=== PATIENT | male | born 1945 | race Caucasian/White ===

== ENCOUNTER 2020-08-04 14:39 | Emergency (ER) | payer MEDICARE, OTHER ==
[~2020-08-04] VITALS: Ht 177 cm; Wt 97.0 kg
--- NOTE | 2020-08-04 15:05 | ED GU-Male ---
General Chief Complaint: - Urinary Stated Complaint: HEMATURIA Nursing Triage Note: PT SENT FROM CLINIC FOR BLOOD IN URINE. DIAGNOSED WITH UTI OVER THERE BUT SINCE HE HAD KETONES AND GLUCOSE IN HIS URINE HE WANTED TO BE CHECKED OUT FURTHER. History of Present Illness Date Seen by Provider: Aug 04, 2020 Time Seen by Provider: 14:56 Initial Comments 75-year-old male history of coronary artery disease stent hypertension denies history of any urinary or prostate difficulties he is on Plavix had colon resection years ago he was very physically active with some strenuous things recently but no fall or trauma other than gross hematuria, he has no other symptoms he was urinating and noted gross blood went to the clinic where they found blood and leukocytes in his urine I guess he was felt to have a UTI but there were further concerns so he was sent to the ER for evaluation Allergies and Home Medications Allergies Coded Allergies: No Known Drug Allergies (Unverified , 08/04/20) Patient Home Medication List Home Medication List Reviewed: Yes Review of Systems Review of Systems Constitutional: no symptoms reported EENTM: no symptoms reported Respiratory: no symptoms reported Cardiovascular: no symptoms reported Gastrointestinal: No abdominal pain, No vomiting Genitourinary: no symptoms reported; denies dysuria, denies frequency, denies flank pain; hematuria Musculoskeletal: no symptoms reported Skin: no symptoms reported Psychiatric/Neurological: No Symptoms Reported Past Gjdorea-Xbbtfx-Tlccsl Hx Patient Social History Alcohol Use: Denies Use Recreational Drug Use: No Smoking Status: Never a Smoker Type Used: Smokeless Tobacco 2nd Hand Smoke Exposure: No Recent Foreign Travel: No Contact w/Someone Who Travel: No Recent Infectious Disease Expo: No Recent Hopitalizations: No Physical Abuse: No Sexual Abuse: No Mistreated: No Fear: No Seasonal Allergies Seasonal Allergies: No Past Medical History Surgeries: Yes (Colon resections, cardiac stents) Bowel Surgery, Coronary Stent Respiratory: No Cardiac: Yes High Cholesterol, Hypertension Neurological: No Genitourinary: No Gastrointestinal: Yes Gastroesophageal Reflux Musculoskeletal: Yes Gout Endocrine: No HEENT: No Cancer: No Psychosocial: No Blood Disorders: No Physical Exam Vital Signs Vital Signs - First Documented 08/04/20 14:50 Temp 36.3 Pulse 64 Resp 18 B/P (MAP) 112/71 (85) Pulse Ox 98 O2 Delivery Room Air Capillary Refill : Less Than 3 Seconds Height, Weight, BMI Height: '" Weight: lbs. oz. kg; 30.00 BMI Method: General Appearance: WD/WN, no apparent distress HEENT: PERRL/EOMI, normal ENT inspection Neck: supple Cardiovascular: regular rate, rhythm Respiratory: lungs clear, normal breath sounds Gastrointestinal: non tender, soft, other (nothing to suggest bladder diste nsion) Genital/Rectal: normal genital exam Back: normal inspection, no CVA tenderness Progress/Results/Core Measures Suspected Sepsis Recent Fever Within 48 Hours: No Infection Criteria Present: None New/Unexplained Altered Menta: No Sepsis Screen: No Definite Risk SIRS Temperature: Pulse: 64 Respiratory Rate: 18 Laboratory Tests 08/04/20 14:57: White Blood Count 7.3 Blood Pressure 112 /71 Mean: 85 Laboratory Tests 08/04/20 14:57: Creatinine 2.02H, Platelet Count 213, Total Bilirubin 0.5 Results/Orders Lab Results Laboratory Tests Test 08/04/20 14:55 08/04/20 14:57 Range/Units Urine Color YELLOW Urine Clarity CLEAR Urine pH 6.0 5-9 Urine Specific River 1.025 H 1.016-1.022 Urine Protein NEGATIVE NEGATIVE Urine Glucose (UA) NEGATIVE NEGATIVE Urine Ketones NEGATIVE NEGATIVE Urine Nitrite NEGATIVE NEGATIVE Urine Bilirubin NEGATIVE NEGATIVE Urine Urobilinogen 0.2 < = 1.0 MG/DL Urine Leukocyte Esterase NEGATIVE NEGATIVE Urine RBC (Auto) 3+ H NEGATIVE Urine RBC >100 H /HPF Urine WBC NONE /HPF Urine Crystals NONE /LPF Urine Bacteria NONE /HPF Urine Casts NONE /LPF Urine Mucus NEGATIVE /LPF Urine Culture Indicated NO White Blood Count 7.3 4.3-11.0 10^3/uL Red Blood Count 4.00 L 4.35-5.85 10^6/uL Hemoglobin 12.3 L 13.3-17.7 G/DL Hematocrit 36 L 40-54 % Mean Corpuscular Volume 90 80-99 FL Mean Corpuscular Hemoglobin 31 25-34 PG Mean Corpuscular Hemoglobin Concent 34 32-36 G/DL Red Cell Distribution Width 13.8 10.0-14.5 % Platelet Count 213 130-400 10^3/uL Mean Platelet Volume 8.8 7.4-10.4 FL Neutrophils (%) (Auto) 58 42-75 % Lymphocytes (%) (Auto) 27 12-44 % Monocytes (%) (Auto) 11 0-12 % Eosinophils (%) (Auto) 3 0-10 % Basophils (%) (Auto) 1 0-10 % Neutrophils # (Auto) 4.2 1.8-7.8 X 10^3 Lymphocytes # (Auto) 2.0 1.0-4.0 X 10^3 Monocytes # (Auto) 0.8 0.0-1.0 X 10^3 Eosinophils # (Auto) 0.2 0.0-0.3 10^3/uL Basophils # (Auto) 0.0 0.0-0.1 10^3/uL Sodium Level 138 135-145 MMOL/L Potassium Level 3.8 3.6-5.0 MMOL/L Chloride Level 105 98-107 MMOL/L Carbon Dioxide Level 24 21-32 MMOL/L Anion Gap 9 5-14 MMOL/L Blood Urea Nitrogen 32 H 7-18 MG/DL Creatinine 2.02 H 0.60-1.30 MG/DL Estimat Glomerular Filtration Rate 32 BUN/Creatinine Ratio 16 Glucose Level 115 H 70-105 MG/DL Calcium Level 9.0 8.5-10.1 MG/DL Corrected Calcium 9.0 8.5-10.1 MG/DL Total Bilirubin 0.5 0.1-1.0 MG/DL Aspartate Amino Transf (AST/SGOT) 28 5-34 U/L Alanine Aminotransferase (ALT/SGPT) 18 0-55 U/L Alkaline Phosphatase 152 H 40-136 U/L Total Protein 6.9 6.4-8.2 GM/DL Albumin 4.0 3.2-4.5 GM/DL My Orders Orders - VERN MADDEN MD Urinalysis (08/04/20 14:52) Cbc With Automated Diff (08/04/20 14:52) Comprehensive Metabolic Panel (08/04/20 14:52) Vital Signs/I&O 08/04/20 14:50 Temp 36.3 Pulse 64 Resp 18 B/P (MAP) 112/71 (85) Pulse Ox 98 O2 Delivery Room Air Capillary Refill : Less Than 3 Seconds Blood Pressure Mean: 85 Progress Note : Progress Note Hb 12.3 WBC 7,300 Urine tests positive for blood with greater than 100 red cells but is otherwise negative CMP - BUN 32 creat 2.0 no old values to compare when giving urine sample here pt said there is much less blood than before Departure Impression Primary Impression: Hematuria Qualified Codes: R31.0 - Gross hematuria Additional Impression: Renal insufficiency Disposition: 01 HOME, SELF-CARE Condition: Stable Departure-Patient Inst. Decision time for Depature: 15:56 Referrals: MARILOU RADFORD MD (PCP/Family) Primary Care Physician JOY DUMONT MD Patient Instructions: Blood in the Urine (Hematuria), Adult (DC) Add. Discharge Instructions: We recommend that you schedule a follow-up appointment with the urologist Dr. Dumont regarding the bleeding Your kidney function is down somewhat creatinine 2.0 Dr. radford should be made aware of this and that should be followed over time All discharge instructions reviewed with patient and/or family. Voiced understanding. VERN MADDEN MD Aug 04, 2020 15:05
[2020-08-04 15:08] LABS: BILIRUBIN,URINE NEGATIVE (NEGATIVE); CLARITY,URINE CLEAR; COLOR,URINE YELLOW; GLUCOSE, URINE (UA) NEGATIVE (NEGATIVE); KETONES,URINE NEGATIVE (NEGATIVE); LEUKOCYTE ESTERASE ,URINE NEGATIVE (NEGATIVE); NITRITE,URINE NEGATIVE (NEGATIVE); PROTEIN,URINE NEGATIVE (NEGATIVE); RBC,URINE >100 /HPF
[2020-08-04 15:10] LABS: BASOPHILS % (AUTO) 1 % (0-10); EOSINOPHILS % (AUTO) 3 % (0-10); HEMATOCRIT 36 % (40-54); HEMOGLOBIN 12.3 G/DL (13.3-17.7); LYMPHOCYTES % (AUTO) 27 % (12-44); MEAN CORPUSCULAR HEMOGLOBIN 31 PG (25-34); MEAN CORPUSCULAR HGB CONC 34 G/DL (32-36); MEAN CORPUSCULAR VOLUME 90 FL (80-99); MEAN PLATELET VOLUME 8.8 FL (7.4-10.4); MONOCYTES % (AUTO) 11 % (0-12); NEUTROPHILS % (AUTO) 58 % (42-75); PLATELET COUNT 213 10^3/uL (130-400); WHITE BLOOD COUNT 7.3 10^3/uL (4.3-11.0)
[2020-08-04 15:11] LABS: EOSINOPHILS # (AUTO) 0.2 10^3/uL (0.0-0.3); MONOCYTES # (AUTO) 0.8 X 10^3 (0.0-1.0); NEUTROPHILS # (AUTO) 4.2 X 10^3 (1.8-7.8)
[2020-08-04 15:47] LABS: CREATININE SERUM 2.02 MG/DL (0.60-1.30); POTASSIUM 3.8 MMOL/L (3.6-5.0)
[2020-08-04 15:48] LABS: BILIRUBIN,TOTAL 0.5 MG/DL (0.1-1.0); TOTAL PROTEIN 6.9 GM/DL (6.4-8.2)
[2020-08-04 16:00] VITALS: BP 110/62
== END 2020-08-04 16:00 | disposition home or self-care (01) ==
LOC: ER FS 14:41
DX: R31.9 Hematuria, unspecified (principal); N28.9 Disorder of kidney and ureter, unspecified; I10 Essential (primary) hypertension; Z95.5 Presence of coronary angioplasty implant and graft; Z79.02 Long term (current) use of antithrombotics/antiplatelets
CPT/HCPCS: 36415; 80053; 81000; 85025

== ENCOUNTER → 2020-12-06 | Outpatient (CLI) | payer MEDICARE ==
--- NOTE | 2020-12-06 10:48 | Diagnostic Imaging Report ---
PROCEDURE: CT head without contrast. TECHNIQUE: Multiple contiguous axial images were obtained through the brain without the use of intravenous contrast. Auto Exposure Controls were utilized during the CT exam to meet ALARA standards for radiation dose reduction. DATE: December 06, 2020. COMPARISON: None. INDICATION: 75-year-old male, head injury. Headache. FINDINGS: The ventricles and cerebral spinal fluid spaces are of normal size and configuration for the patient's age. There is no mass effect or midline shift. There is no acute intracranial hemorrhage. There is no abnormal extra-axial fluid collection. The right frontal sinus is hypoplastic. There is a partially imaged polypoid lesion in the left maxillary sinus most likely reflecting a mucous retention cyst. The mastoid air cells and middle ears are well-aerated bilaterally. IMPRESSION: 1. No identified acute intracranial abnormality. Dictated by: Dictated on workstation # [id number]
== END ==
LOC: RAD FS 09:42
PROVIDERS: ATTEND Family Medicine
DX: S09.90XA Unspecified injury of head, initial encounter (principal); X58.XXXA Exposure to other specified factors, initial encounter
CPT/HCPCS: 70450

== ENCOUNTER 2021-10-17 15:09 | Observation (INO) | payer MEDICARE ==
[~2021-10-17] VITALS: Ht 177 cm; Wt 96.0 kg
--- OUTSIDE RECORDS SUMMARY | 2021-10-17 15:14 | XMS REPORT | Clinical Summary ---
Author [facility] Address Unknown Phone Unavailable Care Team Providers Care Wood Shingle Roofer Name Role Phone Self, Ziyad TILLMAN PCP Source Comments Some departments are not documenting in the electronic medical record. If you d o not see the information that you expected, contact Release of Information in [facility] [employer] Information Management department at [phone] for further assistan ce in locating additional records.[facility] Allergies Comments Active Allergy Reactions Severity Noted Date suicidal Hydrocodone-Acetaminophen UNKNOWN Low 07/20 Medications End Date Status Medication Sig Dispensed Refills Start Date Active METOPROLOL SUCCINATE PO Take 50 mg by 0 mouth daily. Active amLODIPine-benazepriL Take 1 0 (LOTREL) 10-20 mg capsule capsule by mouth daily. Active allopurinoL (ZYLOPRIM) Take 300 mg 0 300 mg tablet by mouth daily. Take with food. Active pantoprazole DR Take 40 mg by 0 (PROTONIX) 40 mg tablet mouth daily. Active losartan-hydrochlorothiaz Take 1 tablet 0 leonila (HYZAAR) 50-12.5 mg by mouth tablet every morning. Active docosahexaenoic acid/epa Take 1,200 mg 0 (FISH OIL PO) by mouth daily. Active aspirin EC 81 mg tablet Take 81 mg by 0 mouth daily. Take with food. Active atorvastatin (LIPITOR) 40 Take 40 mg by 0 mg tablet mouth daily. Active phenazopyridine Take one 6 tablet 0 (PYRIDIUM) 200 mg tablet tablet by 0 mouth three times daily as needed for Pain. Take after meals for up to 2 days. Active finasteride (PROSCAR) 5 Take one 90 tablet 3 mg tablet tablet by 0 mouth daily. Active Problems Problem Noted Date Hematuria 08/09/2020 Surgical History Surgery Date Site/Laterality Comments ABDOMEN SURGERY HX HEART CATHETERIZATION CYSTOURETHROSCOPY 08/16/2020 Bladder/N/A CYSTOURETHRO SCOPY WITH CLOT EVACUATION performed by Jefry Whalen MD at [facility] OR Medical History Medical History Date Comments Coronary artery disease Hyperlipidemia Hypertension Gout Social History Date Tobacco Use Types Packs/Day Years Used Never Smoker Smokeless Tobacco: Chew Current User Comments Alcohol Use Standard Drinks/Week Not Currently 0 (1 standard drink = 0.6 o z pure alcohol) Alcohol Habits Answer Date Recorded How often do you have a drink containing alcohol? Never 08/16/2020 How many drinks containing alcohol do you have on No t asked a typical day when you are drinking? How often do you have six or more drinks on one Not asked occasion? Comment: Not asked Sex Assigned at Date Recorded Male 08/11/2020 8:45 AM CDT Last Filed Vital Signs Reading Time Taken Comments Vital Sign 115/69 08/16/2020 2:15 PM CDT Blood Pressure 60 08/16/2020 2:15 PM CDT Pulse 36.5 C (97.7 F) 08/16/2020 2:15 PM CDT Temperature - - Respiratory Rate 94% 08/16/2020 2:15 PM CDT Oxygen Saturation - - Inhaled Oxygen Concentration 93.6 kg (206 lb 6.4 oz) 08/16/2020 11:01 AM CDT Weight 177.8 cm (5' 10") 08/16/2020 11:01 AM CDT Height 29.62 08/16/2020 11:01 AM CDT Body Mass Index Plan of Treatment Health Maintenance Due Date Last Done Comments MEDICARE ANNUAL WELLNESS 1945 VISIT DTAP/TDAP VACCINES (1 - 1964 Tdap) HEPATITIS C SCREENING 1964 PHYSICAL (COMPREHENSIVE) 1964 EXAM COLORECTAL CANCER 1996 SCREENING SHINGLES RECOMBINANT 1996 VACCINE (1 of 2) PNEUMONIA (PPSV23) 2011 VACCINE (1 of 1 - PPSV23) INFLUENZA VACCINE 06/18/2021 Results Not on filefrom Last 3 Months Insurance Type Payer Benefit Subscriber ID Effective Phone Address Plan / Dates Group Medicare MEDICARE MEDICARE [id number] 2011-P [phone] [address] [place] [address] [facility] AARP [id number] 2019-P [id number] [place] [address] Guarantor Name Account Relation to Date of Phone Markie toscano Address Type Patient Son Estrada Personal/F Self 1945 [address] [facility] (Home) [place], [place] [address] Advance Directives 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 necessary based on Dx Care Teams Start Date End Date Wood Shingle Roofer Relationship Specialty 08/09/20 Ziyad Rosado MD PCP - General Family [address] [place] [address] [place] [address]
[2021-10-17] MEDS ORDERED: ASPIRIN 81 MG CHEW (CHILDREN'S ASA) PO ONE (15:30)
--- NOTE | 2021-10-17 15:34 | Diagnostic Imaging Report ---
INDICATION: Chest pain. FINDINGS: The lungs are clear. There is no failure, effusion, or pneumothorax. IMPRESSION: No acute appearing abnormality. Dictated by: Dictated on workstation # [id number]
[2021-10-17 15:36] LABS: HEMATOCRIT 39 % (40-54); HEMOGLOBIN 13.1 g/dL (13.3-17.7); MEAN CORPUSCULAR HEMOGLOBIN 30 pg (25-34); MEAN CORPUSCULAR HGB CONC 34 g/dL (32-36); MEAN CORPUSCULAR VOLUME 90 fL (80-99); MEAN PLATELET VOLUME 8.6 fL (9.0-12.2); PLATELET COUNT 205 10^3/uL (130-400); WHITE BLOOD COUNT 5.9 10^3/uL (4.3-11.0)
[2021-10-17 15:37] LABS: BASOPHILS % (AUTO) 0 % (0-10); EOSINOPHILS % (AUTO) 0 % (0-10); LYMPHOCYTES # (AUTO) 1.7 X 10^3 (1.0-4.0); LYMPHOCYTES % (AUTO) 29 % (12-44); MONOCYTES # (AUTO) 0.9 X 10^3 (0.0-1.0); MONOCYTES % (AUTO) 15 % (0-12); NEUTROPHILS # (AUTO) 3.3 X 10^3 (1.8-7.8); NEUTROPHILS % (AUTO) 56 % (42-75)
[2021-10-17 15:47] LABS: PROTHROMBIN TIME PATIENT 13.5 SEC (12.2-14.7)
[2021-10-17 15:49] LABS: ALBUMIN 3.8 GM/DL (3.2-4.5); BILIRUBIN,TOTAL 0.4 MG/DL (0.1-1.0); CALCIUM 9.1 MG/DL (8.5-10.1); CREATININE SERUM 2.26 MG/DL (0.60-1.30); MAGNESIUM 2.1 MG/DL (1.6-2.4); POTASSIUM 3.5 MMOL/L (3.6-5.0)
--- NOTE | 2021-10-17 16:05 | ED Chest Pain ---
General Chief Complaint: Chest Pain Stated Complaint: CP,SOB,WEAKNESS,RUNNING NOSE Nursing Triage Note: PT REPORTS HE WOKE UP WITH CHEST PAIN THIS AM THAT LASTED ABOUT AN HOUR AND HALF/ THIS AFTERNOON HE HAD CHEST PAIN WITH DIAPHORESIS, WEAKNESS, AND SOB FOR ABOUT 45 MINS. DENIES CHEST PAIN AT THIS TIME. Source: patient Exam Limitations: no limitations History of Present Illness Date Seen by Provider: Oct 17, 2021 Time Seen by Provider: 15:09 Initial Comments Here with report of 2 episodes of chest pain today. Initially when he woke up this morning he had chest pain for about an hour and a half. Then it went away. He later had chest pain about an hour ago that lasted for 45 minutes that was associated with diaphoresis, weakness and shortness of breath. These are central and pressure and moderate in intensity. Currently chest pain-free. Denies vomiting or diarrhea. Does have history of previous cardiac stents x2 out of [place]. Follow[facility] here. Reports taking medications as directed. He is currently on Plavix and a baby aspirin daily but does not take other blood thinners. No history of atrial fibrillation per the patient. 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 NTG SL NEIGHBORHOOD WORKER: No Associated Symptoms: No abdominal pain, No back pain; diaphoresis; No fever/chills, No nausea/vomiting; shortness of breath, weakness Allergies and Home Medications Allergies Coded Allergies: No Known Drug Allergies (Unverified , 08/04/20) Patient Home Medication List Home Medication List Reviewed: Yes Review of Systems Review of Systems Constitutional: see HPI, diaphoresis, weakness EENTM: No Symptoms Reported Respiratory: Denies Cough; Shortness of Air Cardiovascular: Chest Pain; Denies Edema Gastrointestinal: Denies Abdominal Pain, Denies Nausea, Denies Vomiting Genitourinary: No Symptoms Reported Musculoskeletal: no symptoms reported All Other Systems Reviewed Negative Unless Noted: Yes Past Bdaghuo-Zasngm-Rvclfa Hx Patient Social History Tobacco Use?: Yes Smoking Status: Current Everyday Smoker Use of E-Cig and/or Vaping dev: No Substance use?: No Alcohol Use?: No Immunizations Up To Date First/Initial COVID19 Vaccinat: [employer] 2020 Second COVID19 Vaccination Jovan: [employer] 2020 COVID19 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: [employer] Seasonal Allergies Seasonal Allergies: No Past Medical History Surgeries: Yes (Colon resections, cardiac stents) Bowel Surgery, Coronary Stent Respiratory: No Cardiac: Yes High Cholesterol, Hypertension Neurological: No Genitourinary: No Gastrointestinal: Yes Gastroesophageal Reflux Musculoskeletal: Yes Gout Endocrine: No HEENT: No Cancer: No Psychosocial: No Blood Disorders: No Family Medical History Reviewed Nursing Family Hx Physical Exam Vital Signs Vital Signs - First Documented 10/17/21 15:09 Temp 36.6 Pulse 84 Resp 18 B/P (MAP) 121/76 (91) Pulse Ox 96 O2 Delivery Room Air Capillary Refill : Less Than 3 Seconds Height, Weight, BMI Height: '" Weight: lbs. oz. kg; 30.00 BMI Method: General Appearance: No Apparent Distress, WD/WN HEENT: PERRL/EOMI, Pharynx Normal Neck: Non Tender, Supple Respiratory: Lungs Clear, Normal Breath Sounds Cardiovascular: Regular Rate, Rhythm, No Murmur Gastrointestinal: Non Tender, Soft Extremity: Normal Range of Motion, Non Tender Neurologic/Psychiatric: Alert, Oriented x3 Skin: Normal Color, Warm/Dry Progress/Results/Core Measures Results/Orders Lab Results Laboratory Tests Test 10/17/21 15:18 Range/Units White Blood Count 5.9 4.3-11.0 10^3/uL Red Blood Count 4.34 4.30-5.52 10^6/uL Hemoglobin 13.1 L 13.3-17.7 g/dL Hematocrit 39 L 40-54 % Mean Corpuscular Volume 90 80-99 fL Mean Corpuscular Hemoglobin 30 25-34 pg Mean Corpuscular Hemoglobin Concent 34 32-36 g/dL Red Cell Distribution Width 13.9 10.0-14.5 % Platelet Count 205 130-400 10^3/uL Mean Platelet Volume 8.6 L 9.0-12.2 fL Neutrophils (%) (Auto) 56 42-75 % Lymphocytes (%) (Auto) 29 12-44 % Monocytes (%) (Auto) 15 H 0-12 % Eosinophils (%) (Auto) 0 0-10 % Basophils (%) (Auto) 0 0-10 % Neutrophils # (Auto) 3.3 1.8-7.8 X 10^3 Lymphocytes # (Auto) 1.7 1.0-4.0 X 10^3 Monocytes # (Auto) 0.9 0.0-1.0 X 10^3 Eosinophils # (Auto) 0.0 0.0-0.3 10^3/uL Basophils # (Auto) 0.0 0.0-0.1 10^3/uL Prothrombin Time 13.5 12.2-14.7 SEC INR Comment 1.0 0.8-1.4 Activated Partial Thromboplast Time 31 24-35 SEC D-Dimer 0.44 0.00-0.49 UG/ML Sodium Level 139 135-145 MMOL/L Potassium Level 3.5 L 3.6-5.0 MMOL/L Chloride Level 103 98-107 MMOL/L Carbon Dioxide Level 23 21-32 MMOL/L Anion Gap 13 5-14 MMOL/L Blood Urea Nitrogen 24 H 7-18 MG/DL Creatinine 2.26 H 0.60-1.30 MG/DL Estimat Glomerular Filtration Rate 28 BUN/Creatinine Ratio 11 Glucose Level 167 H 70-105 MG/DL Calcium Level 9.1 8.5-10.1 MG/DL Corrected Calcium 9.3 8.5-10.1 MG/DL Magnesium Level 2.1 1.6-2.4 MG/DL Total Bilirubin 0.4 0.1-1.0 MG/DL Aspartate Amino Transf (AST/SGOT) 33 5-34 U/L Alanine Aminotransferase (ALT/SGPT) 28 0-55 U/L Alkaline Phosphatase 224 H 40-136 U/L Myoglobin 135.8 H 10.0-92.0 NG/ML Troponin I < 0.30 <0.30 NG/ML Pro-B-Type Natriuretic Peptide 2137.0 H <75.0 PG/ML Total Protein 7.0 6.4-8.2 GM/DL Albumin 3.8 3.2-4.5 GM/DL My Orders Orders - MARQUIS PEREA MD Cbc With Automated Diff (10/17/21 15:16) Magnesium (10/17/21 15:16) Chest 1 View Ap/Pa Only (10/17/21 15:16) Ekg Tracing (10/17/21 15:16) Comprehensive Metabolic Panel (10/17/21 15:16) Myoglobin Serum (10/17/21 15:16) Protime With Inr (10/17/21 15:16) Partial Thromboplastin Time (10/17/21 15:16) O2 (10/17/21 15:16) Monitor-Rhythm Ecg Trace Only (10/17/21 15:16) Lipid Panel (10/18/21 06:00) Aspirin Chewable Tablet (Baby Aspirin Ch (10/17/21 15:30) Ed Iv/Invasive Line Start (10/17/21 15:16) Troponin I Fs (10/17/21 15:16) Probnp Fs (10/17/21 15:16) Fibrin Degradation Products (10/17/21 15:24) Enoxaparin Injection (Lovenox Injection) (10/17/21 16:30) Medications Given in ED Current Medications Medications Dose Ordered Sig/Aubree Route Start Time Stop Time Status Last Admin Dose Admin Aspirin 324 mg ONCE ONCE PO 10/17/21 15:30 10/17/21 15:31 DC 10/17/21 15:20 324 MG Vital Signs/I&O 10/17/21 15:09 Temp 36.6 Pulse 84 Resp 18 B/P (MAP) 121/76 (91) Pulse Ox 96 O2 Delivery Room Air Blood Pressure Mean: 91 Progress Progress Note : Progress Note Seen and evaluated. Chest pain protocol initiated. IV, labs and EKG done. ASA 324 mg p.o. ordered. Chest pain-free currently so no nitro. Atrial fibrillation noted on monitor. Patient does not have history of this for him. Monitor patient. 1605: Troponin is negative but myoglobin is elevated as well as BNP markedly elevated. Given his history, further evaluation is indicated and would benefit from cardiology evaluation. 1622: I did discuss the case with Dr. Shukla. He agrees to see the patient in consult and is in agreement with observation admission. Recommends Lovenox 1 mg/kg in first dose ordered now. I did discuss the case with Dr. Guevara at 1630. She accepts patient for admission, observation status. All findings and concerns were discussed with patient and family who agree with the plan. I also agree with admission to [facility]. His primary labeler is at [facility]. Initial ECG Impression Date: Oct 17, 2021 Initial ECG Impression Time: 15:09 Initial ECG Rhythm: A Fib/Flutter Comment Atrial fibrillation with normal axis. No evidence of ST elevation MD. No previous available for comparison. Does have lateral lead ST depression in V4 to V6. T wave flattening in multiple leads. Interpreted by me. Diagnostic Imaging Diagonstic Imaging: Xray Plain Films/CT/US/NM/MRI: chest Comments NAME: SURY [facility]ORDON [facility] REC#: [id number] PT STATUS: REG ER : 1945 PHYSICIAN: MARQUIS PEREA MD ADMIT DATE: 10/17/21/ER FS Draft Date of Exam:10/17/21 CHEST 1 VIEW AP/PA ONLY INDICATION: Chest pain. FINDINGS: The lungs are clear. There is no failure, effusion, or pneumothorax. IMPRESSION: No acute appearing abnormality. Dictated on workstation # [id number] Dict: 10/17/21 1531 Trans: 10/17/21 1534 [id number] Interpreted by: ADITYA VINCENT Electronically signed by: Departure Communication (Admissions) Time/Spoke to Admitting Phy: 16:30 Time/Spoke to Consulting Phy: 16:22 Impression Primary Impression: Chest pain Qualified Codes: R07.9 - Chest pain, unspecified Additional Impression: Atrial fibrillation Qualified Codes: I48.20 - Chronic atrial fibrillation, unspecified Disposition: 30 STILL A PATIENT Condition: Stable Admissions Decision to Admit Reason: Admit from ER (General) Decision to Admit/Date: Oct 17, 2021 Time/Decision to Admit Time: 16:22 Departure-Patient Inst. Referrals: MARILOU RADFORD MD (PCP/Family) Primary Care Physician MARQUIS PEREA MD Oct 17, 2021 16:05
[2021-10-17] MEDS ORDERED: ENOXAPARIN 100 MG/1 ML (LOVENOX) SYR SC ONE (16:30)
[2021-10-17] MEDS ORDERED: ACETAMINOPHEN 325 MG TABLET PO PRN (19:15)
[2021-10-17] MEDS: ENOXAPARIN 100 MG/1 ML (LOVENOX) SYR SC SCH (19:49)
[2021-10-17 20:00] VITALS: BP 114/82
--- NOTE | 2021-10-17 20:19 | Short Stay Summary-Hospitalist ---
History of Present Illness HPI/Chief Complaint Chief complaint: Chest pain History present illness: This is a 76-year-old white male with known history of CAD previous stents placed managed by cardiology a [facility] who presented to [facility] with chest pain and diaphoresis after putting in a chain link fence. Patient is currently without chest pain and is at the bedside. Source: patient, family, RN/MD, old records Exam Limitations: no limitations Date Seen 10/17/21 Time Seen by a Provider: 19:00 Attending Physician Leeann Guevara DO PCP Self,Ziyad TILLMAN Referring Physician Date of Admission Oct 17, 2021 at 18:35 Home Medications & Allergies Home Medications Reviewed patient Home Medication Reconciliation performed by pharmacy medication reconciliations operator technician and/or nursing. Patients Allergies have been reviewed. Allergies Allergies Coded Allergies No Known Drug Allergies (Unverified08/04/20) Past Cxjjzkm-Szirol-Hypctw Hx Patient Social History Marrital Status: Employed/Student: retired Tobacco Use?: Yes Smoking Status: Current Everyday Smoker Smokeless type used: Chew Use of E-Cig and/or Vaping dev: No Substance use?: No Alcohol Use?: No Immunizations Up To Date First/Initial COVID19 Vaccinat: PFIZER 2020 Second COVID19 Vaccination Jovan: PFIZER 2020 Seasonal Allergies Seasonal Allergies: No Current Status Advance Directives: No Communicates: Verbally Primary Language: Belarusian Preferred Spoken Language: Belarusian Past Medical History Surgeries: Bowel Surgery, Coronary Stent Coronary Artery Disease, High Cholesterol, Hypertension Gastroesophageal Reflux Gout Blood Disorders: No Family Medical History Reviewed Nursing Family Hx Review of Systems Constitutional: see HPI EENTM: no symptoms reported Respiratory: no symptoms reported Cardiovascular: chest pain Gastrointestinal: no symptoms reported Genitourinary: no symptoms reported Musculoskeletal: no symptoms reported Skin: no symptoms reported Psychiatric/Neurological: No Symptoms Reported All Other Systems Reviewed Negative Unless Noted: Yes Physical Exam Physical Exam Vital Signs Vital Signs - First Documented 10/17/21 15:09 Temp 36.6 Pulse 84 Resp 18 B/P (MAP) 121/76 (91) Pulse Ox 96 O2 Delivery Room Air Capillary Refill : Less Than 3 Seconds Height, Weight, BMI Height: '" Weight: lbs. oz. kg; 30.00 BMI Method: General Appearance: No Apparent Distress, WD/WN, Chronically ill HEENT: PERRL/EOMI, Pharynx Normal Neck: Non Tender, Supple Respiratory: Lungs Clear, Normal Breath Sounds Cardiovascular: Regular Rate, Rhythm, No Murmur Gastrointestinal: Non Tender, Soft Extremity: Normal Range of Motion, Non Tender Neurologic/Psychiatric: Alert, Oriented x3 Skin: Normal Color, Warm/Dry Results Results/Procedures Labs Laboratory Tests 10/17/21 15:18 10/18/21 04:30 Patient resulted labs reviewed. Short Stay Diagnosis Discharge Diagnosis-Short Stay Admission Diagnosis Chest pain Final Discharge Diagnosis Chest pain, CAD previous stents Conclusion Plan Cardiology consult Clinical Quality Measures AMI/AHF: ASA po Prior to arrival: Yes LEEANN GUEVARA DO Oct 17, 2021 20:19
[2021-10-17] MEDS ORDERED: ONDANSETRON 4 MG/2 ML (SDV) Z0FRAN IVP PRN (20:45)
[2021-10-17] MEDS ORDERED: ALPRAZolam 0.25 MG (XANAX) TAB PO PRN (20:45)
[2021-10-17] MEDS ORDERED: diphenhydrAMINE 25 MG TAB (BENADRYL) PO PRN (20:45)
[2021-10-17] MEDS ORDERED: MELATONIN 3 MG TABLET PO PRN (20:45)
[2021-10-17] MEDS ORDERED: HYDROcodone/APAP 5 MG/325 MG (LORTAB) TAB PO PRN (20:45)
[2021-10-17] MEDS ORDERED: morphine INJ 10 MG/ML 1ML (SYR OR VIAL) IVP PRN (20:45)
[2021-10-17] MEDS ORDERED: LOPERAMIDE 2 MG (IMODIUM) TABLET PO PRN (20:45)
[2021-10-17] MEDS ORDERED: CALCIUM CARBONATE 500 MG (TUMS) TAB.CHEW PO PRN (20:45)
[2021-10-17] MEDS ORDERED: DOCUSATE SODIUM 100 MG (COLACE) CAP PO PRN (20:45)
[2021-10-17] MEDS: polyethylene glycoL POWDER 17 GM (MIRALAX) PACK PO SCH (21:46)
[2021-10-17] MEDS: SENNA W/DOCUSATE (SENOKOT S) TABLET PO SCH (21:46)
[2021-10-18] VITALS: BP 110/77
[2021-10-18 04:43] LABS: BASOPHILS % (AUTO) 0 % (0-10); EOSINOPHILS % (AUTO) 0 % (0-10); HEMATOCRIT 39 % (40-54); LYMPHOCYTES # (AUTO) 1.7 10^3/uL (1.0-4.0); LYMPHOCYTES % (AUTO) 23 % (12-44); MEAN CORPUSCULAR HEMOGLOBIN 29 pg (25-34); MEAN CORPUSCULAR HGB CONC 33 g/dL (32-36); MEAN CORPUSCULAR VOLUME 89 fL (80-99); MONOCYTES # (AUTO) 0.9 10^3/uL (0.0-1.0); MONOCYTES % (AUTO) 11 % (0-12); NEUTROPHILS # (AUTO) 5.1 10^3/uL (1.8-7.8); NEUTROPHILS % (AUTO) 65 % (42-75); PLATELET COUNT 194 10^3/uL (130-400); WHITE BLOOD COUNT 7.8 10^3/uL (4.3-11.0)
[2021-10-18 04:58] LABS: ALBUMIN 3.7 GM/DL (3.2-4.5); POTASSIUM 3.6 MMOL/L (3.6-5.0)
[2021-10-18 04:59] LABS: CALCIUM 8.7 MG/DL (8.5-10.1)
[2021-10-18 05:00] LABS: TOTAL PROTEIN 6.6 GM/DL (6.4-8.2)
[2021-10-18 05:02] LABS: BILIRUBIN,TOTAL 0.7 MG/DL (0.1-1.0)
[2021-10-18 05:04] LABS: CREATININE SERUM 1.74 MG/DL (0.60-1.30)
[2021-10-18] MEDS: ENOXAPARIN 100 MG/1 ML (LOVENOX) SYR SC SCH (06:16)
[2021-10-18 06:51] LABS: TRIGLYCERIDES 115 MG/DL (<150); VLDL CHOLESTEROL 23 MG/DL (5-40)
[2021-10-18 06:56] LABS: CHOLESTEROL 107 MG/DL (< 200)
[2021-10-18 06:57] LABS: HDL CHOLESTEROL 28 MG/DL (40-60)
[2021-10-18 08:00] VITALS: BP 123/93
[2021-10-18] MEDS: polyethylene glycoL POWDER 17 GM (MIRALAX) PACK PO SCH (08:21)
[2021-10-18] MEDS: SENNA W/DOCUSATE (SENOKOT S) TABLET PO SCH (08:21)
--- NOTE | 2021-10-18 08:58 | Consultation-Cardiology ---
HPI-Cardiology Cardiology Consultation Date of Consultation 10/18/21 Date of Admission Time Seen by Provider: 08:52 Indication: Chest pain, new onset afib HPI Patient is a 76 y/o male with history of CAD with stents x 2, follows with [facility] in [place]. Report last stent approx 1 year ago, HTN, HLP, extobaccoism. Presented to the ER with complaints of chest pain and dyspnea. Reports he was putting up chain link fence yesterday when he had acute onset of chest pain and diaphoresis, lasting approx 20minutes, reporting improvement upon arrival to the ER. Reports increased dyspnea and fatigue for the past couple of weeks. Denies any active chest pain. EKG showing afib/flutter. Currently afib with HR in the 110's-120's. 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 Smoking Status: Former Smoker Type Used: Smokeless Tobacco 2nd Hand Smoke Exposure: No Recent Hopitalizations: No Have you traveled recently?: No Alcohol Use?: No Past Medical History HTN, HLP, CAD, extobaccoism Family Medical History Significant Family History: No Pertinent Family Hx Family Medical Hx Noncontributory Review of Systems-General Review of Systems Constitutional: see HPI, malaise EENTM: no symptoms reported; No blurred vision, No double vision Respiratory: see HPI, dyspnea on exertion; No hemoptysis, No orthopnea Cardiovascular: see HPI, chest pain; No edema; Hx of Intervention, palpitations; No syncope; vascular heart diseas Gastrointestinal: no symptoms reported Genitourinary: no symptoms reported Musculoskeletal: no symptoms reported Skin: no symptoms reported Psychiatric/Neurological: No Symptoms Reported All Other Systems Reviewed Negative Unless Noted: Yes Reviewed Test Results Reviewed Test Results Lab Laboratory Tests 10/17/21 15:18: White Blood Count 5.9, Red Blood Count 4.34, Hemoglobin 13.1L, Hematocrit 39L, Mean Corpuscular Volume 90, Mean Corpuscular Hemoglobin 30, Mean Corpuscular Hemoglobin Concent 34, Red Cell Distribution Width 13.9, Platelet Count 205, Mean Platelet Volume 8.6L, Neutrophils (%) (Auto) 56, Lymphocytes (%) (Auto) 29, Monocytes (%) (Auto) 15H, Eosinophils (%) (Auto) 0, Basophils (%) (Auto) 0, Neutrophils # (Auto) 3.3, Lymphocytes # (Auto) 1.7, Monocytes # (Auto) 0.9, Eosinophils # (Auto) 0.0, Basophils # (Auto) 0.0, Prothrombin Time 13.5, INR Comment 1.0, Activated Partial Thromboplast Time 31, D-Dimer 0.44, Sodium Level 139, Potassium Level 3.5L, Chloride Level 103, Carbon Dioxide Level 23, Anion Gap 13, Blood Urea Nitrogen 24H, Creatinine 2.26H, Estimat Glomerular Filtration Rate 28, BUN/Creatinine Ratio 11, Glucose Level 167H, Calcium Level 9.1, Corrected Calcium 9.3, Magnesium Level 2.1, Total Bilirubin 0.4, Aspartate Amino Transf (AST/SGOT) 33, Alanine Aminotransferase (ALT/SGPT) 28, Alkaline Phosphatase 224H, Myoglobin 135.8H, Troponin I < 0.30, Pro-B-Type Natriuretic Peptide 2137.0H, Total Protein 7.0, Albumin 3.8 10/17/21 20:13: Troponin I < 0.028, B-Type Natriuretic Peptide 394.1H 10/18/21 04:30: White Blood Count 7.8, Red Blood Count 4.43, Hemoglobin 13.0L, Hematocrit 39L, Mean Corpuscular Volume 89, Mean Corpuscular Hemoglobin 29, Mean Corpuscular Hemoglobin Concent 33, Red Cell Distribution Width 13.8, Platelet Count 194, Mean Platelet Volume 9.0, Neutrophils (%) (Auto) 65, Lymphocytes (%) (Auto) 23, Monocytes (%) (Auto) 11, Eosinophils (%) (Auto) 0, Basophils (%) (Auto) 0, Neutrophils # (Auto) 5.1, Lymphocytes # (Auto) 1.7, Monocytes # (Auto) 0.9, Eosinophils # (Auto) 0.0, Basophils # (Auto) 0.0, Sodium Level 140, Potassium Level 3.6, Chloride Level 107, Carbon Dioxide Level 22, Anion Gap 11, Blood Urea Nitrogen 20H, Creatinine 1.74H, Estimat Glomerular Filtration Rate 38, BUN/Crea tinine Ratio 11, Glucose Level 97, Calcium Level 8.7, Corrected Calcium 8.9, Total Bilirubin 0.7, Aspartate Amino Transf (AST/SGOT) 28, Alanine Aminotransferase (ALT/SGPT) 25, Alkaline Phosphatase 190H, Total Protein 6.6, Albumin 3.7, Immature Granulocyte % (Auto) 0, Immature Granulocyte # (Auto) 0.0, Triglycerides Level 115, Cholesterol Level 107, LDL Cholesterol Direct 63, VLDL Cholesterol 23, HDL Cholesterol 28L ECG Impression ECG Initial ECG Rhythm: A Fib/Flutter Physical Exam Physical Exam Vital Signs Vital Signs - First Documented 10/17/21 15:09 Temp 36.6 Pulse 84 Resp 18 B/P (MAP) 121/76 (91) Pulse Ox 96 O2 Delivery Room Air Capillary Refill : Less Than 3 Seconds Height, Weight, BMI Height: '" Weight: lbs. oz. kg; 30.64 BMI Method: General Appearance: No Apparent Distress, WD/WN, Chronically ill HEENT: PERRL/EOMI, Pharynx Normal Neck: Non Tender, Supple Respiratory: Lungs Clear, Normal Breath Sounds Cardiovascular: No Murmur, Irregularly Irregular, Tachycardia Gastrointestinal: Non Tender, Soft Back: No CVA Tenderness Extremity: Normal Range of Motion, Non Tender Neurologic/Psychiatric: Alert, Oriented x3 Skin: Normal Color, Warm/Dry A/P-Cardiology Admission Diagnosis Chest pain Atrial fibrillation CAD Elevated BNP Assessment/Plan Chest pain, nonspecific etiology, reporting improvement at this time. EKG revealing afib/flutter, troponin negative. Chest pain likely secondary to his atrial fibrillation. Will consider evaluating stress test as an outpatient, cardiac enzymes are negative at this time. Atrial fibrillation/flutter, new onset, currently afib/flutter with HR 120's, started on treatment dose Lovenox. Evaluate 2D Echo. Will keep NPO and plan for DANNY/Cardioversion later today. I will start amiodarone [id number] score 4, yearly risk of stroke without oral anticoagulation is 4%. Will start on Eliquis 5 mg twice daily Elevated BNP, evaluate 2D Echo. CAD, reports hx of stenting x 2 with most recent stent done approx 1 year ago. Had been maintained on ASA and Plavix. Follows with [facility] at [place]. HTN, restart home blood pressure medications after reconciliation HLP, maintained on statin as outpatient. Evaluate lipid profile CRI, management per PCP. Tobaccoism, patient uses chewing tobacco. Thank you for allowing us to participate in the management of Mr. Estrada. This is Nancy Parrish PA-C, as a scribe for Dr. Shukla. Patient was seen and evaluated with Nancy, interviewed and examined the patient He was in atrial fibrillation, reporting some palpitation on and off in the past few weeks. No chest pain. Had some chest discomfort on the day of admission. EKG showed nondiagnostic changes, cardiac enzymes were negative I proceeded with DANNY and electrical cardioversion, was successful in terminating atrial fibrillation, I am starting him on amiodarone I am planning to discharging him and arrange for follow-up as an outpatient Patient will start on oral anticoagulation Clinical Quality Measures AMI/AHF: ASA po Prior to arrival: Yes NANCY CARDENAS Oct 18, 2021 08:58 CONSTANCE SHUKLA MD Oct 18, 2021 11:10
[2021-10-18] MEDS ORDERED: ASPIRIN 81 MG CHEW (CHILDREN'S ASA) PO SCH (09:00)
[2021-10-18] MEDS ORDERED: LIDOCAINE 2% VISCOUS 15 ML UDC ONE (10:19)
--- NOTE | 2021-10-18 10:20 | Progress Note - Hospitalist ---
Subjective HPI/CC On Admission Date Seen by Provider: Oct 18, 2021 Chief complaint: Chest pain History present illness: This is a 76-year-old white male with known history of CAD previous stents placed managed by cardiology a [facility] [place] who presented to [place] [facility] with chest pain and diaphoresis after putting in a chain link fence. Patient is currently without chest pain and is at the bedside. Objective Exam Vital Signs Vital Signs Date Time Temp Pulse Resp B/P (MAP) Pulse Ox O2 Delivery O2 Flow Rate FiO2 10/18/21 15:49 37.6 74 12 117/76 (90) 94 Room Air Capillary Refill : Less Than 3 Seconds Results/Procedures Lab Laboratory Tests 10/18/21 04:30 Patient resulted labs reviewed. Assessment/Plan Assessment and Plan Assess & Plan/Chief Complaint Cardiology consult Clinical Quality Measures AMI/AHF: ASA po Prior to arrival: Yes ELIEZER VALERIO DO Oct 18, 2021 10:20
[2021-10-18] MEDS ORDERED: proPOfol 200 MG/20 ML (DIPRIVAN) VIAL IV ONE (10:32)
[2021-10-18] MEDS ORDERED: AMIODARONE INJECTION 450 MG in D5W IV SOLUTION (EXCEL) 250 ML IV SCH (11:00)
[2021-10-18] MEDS ORDERED: AMIODARONE FOR BOLUS 150 MG in D5W 100 ML IVPB 100 ML IV NR (11:00)
--- NOTE | 2021-10-18 11:03 | Anesthesia-General Post-Op ---
MAC Patient Condition Mental Status/LOC: Same as Preop Cardiovascular: Satisfactory Nausea/Vomiting: Absent Respiratory: Satisfactory Pain: Controlled Complications: Absent Post Op Complications Complications None Follow Up Care/Instructions Patient Instructions None needed. Anesthesiology Discharge Order Discharge Order Patient is doing well, no complaints, stable vital signs, no apparent adverse anesthesia problems. No complications reported per nursing. HELGA ROD CRNA Oct 18, 2021 11:03
--- NOTE | 2021-10-18 11:07 | Conscious Sedation/ASA ---
Conscious Sedation Pre-Proced Time 09:00 ASA Score 3 For ASA 3 and 4: Consider anesthesia and medical clearance. Also, for patients with a history of failed moderate sedation consider anesthesia. Airway Lungs Heart ASA score ASA 1: a normal healthy patient ASA 2: a patient with a mild systemic disease (mid diabetes, controlled hypertension, obesity x ASA 3: a patient with a severe systemic disease that limits activity (angina, COPD, prior Myocardial infarction) ASA 4: a patient with an incapacitating disease that is a constant threat to life (CHF, renal failure) ASA 5: a moribund patient not expected to survive 24 hrs. (ruptured aneurysm) ASA 6: a declared brain- patient whose organs are being harvested. For emergent operations, add the letter E after the classification Mallampati Classification Grade 3 Sedation Plan Analgesia, Amnesia, Plan communicated to team members, Discussed options with patient/fam, Discussed risks with patient/fam The patient is an appropriate candidate to undergo the planned procedure, sedation, and anesthesia. The patient immediately re-assessed prior to indication. CONSTANCE OWUSU MD Oct 18, 2021 11:07
--- NOTE | 2021-10-18 11:11 | Cardioversion ---
Cardioversion PROCEDURE PHYSICIAN: Constance Shukla DATE OF PROCEDURE: 10/18/21 DIRECT EXTERNAL ELECTRICAL CARDIOVERSION: Indications: Atrial Fibrillation with rapid ventricular rate Preoperative diagnoses: Atrial Fibrillation with rapid ventricular rate Postoperative diagnosis: Sinus rhythm, Successful Electrical Cardioversion History: 76 years old gentleman admitted with chest pain, was noted to be in atrial fibrillation with rapid ventricular response. Anesthesia: By Anesthesia services Complications: None Specimen: None Contrast: 0 Flouroscopy: none Procedure Details: The patient was brought the cathodic protection technician after informed consent was taken, all the risks and complications were explained including the risk of stroke. Electrical cardioversion was carried out with anesthesia support with propofol. 200 joules of synchronized shock was delivered through external patches which promptly restored sinus rhythm. Conclusions: Successful electrical cardioversion in terminating atrial fibrillation CONSTANCE SHUKLA MD Oct 18, 2021 11:11
[2021-10-18 12:00] VITALS: BP 116/85
[2021-10-18] MEDS ORDERED: ALLO300T2 PO (14:26)
[2021-10-18] MEDS ORDERED: ATOR40TA70 PO (14:26)
[2021-10-18] MEDS ORDERED: CLOP75TA28 PO (14:26)
[2021-10-18] MEDS ORDERED: FINA5TAB6 PO (14:26)
[2021-10-18] MEDS ORDERED: AMLO-251 PO (14:26)
[2021-10-18] MEDS ORDERED: OMEG-160 PO (14:26)
[2021-10-18] MEDS ORDERED: PANT40TA52 PO (14:26)
[2021-10-18] MEDS ORDERED: METO50TA7 PO (14:26)
[2021-10-18] MEDS ORDERED: ASPI-1238 PO (14:26)
[2021-10-18 15:49] VITALS: BP 117/76
[2021-10-18] MEDS ORDERED: APIX5TAB PO (15:53)
--- NOTE | 2021-10-18 15:53 | Discharge Summary ---
Discharge Summary Hospital Course Hospital Course Date of Admission: Oct 17, 2021 at 18:35 Admission Diagnosis : Family Physician/Provider: Ziyad Rosado MD Date of Discharge: 10/18/21 Discharge Diagnosis: [ ] Hospital Course: [ ] Labs and Pending Lab Test: Laboratory Tests 10/17/21 20:13: Troponin I < 0.028, B-Type Natriuretic Peptide 394.1H 10/18/21 04:30: White Blood Count 7.8, Red Blood Count 4.43, Hemoglobin 13.0L, Hematocrit 39L, Mean Corpuscular Volume 89, Mean Corpuscular Hemoglobin 29, Mean Corpuscular Hemoglobin Concent 33, Red Cell Distribution Width 13.8, Platelet Count 194, Mean Platelet Volume 9.0, Immature Granulocyte % (Auto) 0, Neutrophils (%) (Auto) 65, Lymphocytes (%) (Auto) 23, Monocytes (%) (Auto) 11, Eosinophils (%) (Auto) 0, Basophils (%) (Auto) 0, Neutrophils # (Auto) 5.1, Lymphocytes # (Auto) 1.7, Monocytes # (Auto) 0.9, Eosinophils # (Auto) 0.0, Basophils # (Auto) 0.0, Immature Granulocyte # (Auto) 0.0, Sodium Level 140, Potassium Level 3.6, Chloride Level 107, Carbon Dioxide Level 22, Anion Gap 11, Blood Urea Nitrogen 20H, Creatinine 1.74H, Estimat Glomerular Filtration Rate 38, BUN/Creatinine Ratio 11, Glucose Level 97, Calcium Level 8.7, Corrected Calcium 8.9, Total Bilirubin 0.7, Aspartate Amino Transf (AST/SGOT) 28, Alanine Aminotransferase (ALT/SGPT) 25, Alkaline Phosphatase 190H, Total Protein 6.6, Albumin 3.7, Triglycerides Level 115, Cholesterol Level 107, LDL Cholesterol Direct 63, VLDL Cholesterol 23, HDL Cholesterol 28L Home Meds Active Reported Fish Oil 1,000 mg Softgel ([place]-3/Dha/Epa/Fish Oil) 1 Each Capsule 1 Each PO DAILY Aspirin EC (Aspirin) 81 Mg Tablet.dr 81 Mg PO DAILY Clopidogrel (Clopidogrel Bisulfate) 75 Mg Tablet 75 Mg PO 2000 Allopurinol 300 Mg Tablet 300 Mg PO DAILY Finasteride 5 Mg Tablet 5 Mg PO 2000 Atorvastatin Calcium 40 Mg Tablet 40 Mg PO DAILY Pantoprazole Sodium 40 Mg Tablet.dr 40 Mg PO DAILY Amlodipine Besylate 10 Mg Tablet 10 Mg PO DAILY Metoprolol Succinate 50 Mg Tab.er.24h 50 Mg PO DAILY Discharge Physical Examination Vital Signs Vital Signs Date Time Temp Pulse Resp B/P (MAP) Pulse Ox O2 Delivery O2 Flow Rate FiO2 10/18/21 15:49 37.6 74 12 117/76 (90) 94 Room Air Allergies: Coded Allergies: No Known Drug Allergies (Unverified , 08/04/20) Discharge Summary Date of Admission Oct 17, 2021 at 18:35 Date of Discharge Discharge Date: Oct 18, 2021 Admission Diagnosis Chest pain Discharge Diagnosis Cardiology consult Clinical Quality Measures AMI/AHF: ASA po Prior to arrival: Yes ELIEZER VALERIO DO Oct 18, 2021 15:53
[2021-10-18] MEDS ORDERED: AMIO200T65 PO (16:10)
--- NOTE | 2021-10-18 17:24 | Discharge Summary ---
Discharge Summary Hospital Course Was the Problem List Reviewed?: Yes Problems/Dx: (1) Chest pain Qualifiers: Qualified Codes: R07.9 - Chest pain, unspecified (2) Atrial fibrillation Status: Acute Qualifiers: Qualified Codes: I48.20 - Chronic atrial fibrillation, unspecified Hospital Course Date of Admission: Oct 17, 2021 at 18:35 Admission Diagnosis : Family Physician/Provider: Ziyad Rosado MD Date of Discharge: 10/18/21 Discharge Diagnosis: Chest pain, atrial fibrillation with rapid ventricular response status post DANNY with cardioversion Hospital Course: Pt doing okay New onset AFIB with RVR Has had palpitations in the past DANNY indicated and cardioversion if no thrombosis Creatinine 1.74 Otherwise feels okay Patient had a brief course after no evidence of ACS he was found to have A. fib with RVR status post DANNY with cardioversion patient was deemed stable for discharge Labs and Pending Lab Test: Laboratory Tests 10/17/21 20:13: Troponin I < 0.028, B-Type Natriuretic Peptide 394.1H 10/18/21 04:30: White Blood Count 7.8, Red Blood Count 4.43, Hemoglobin 13.0L, Hematocrit 39L, Mean Corpuscular Volume 89, Mean Corpuscular Hemoglobin 29, Mean Corpuscular Hemoglobin Concent 33, Red Cell Distribution Width 13.8, Platelet Count 194, Mean Platelet Volume 9.0, Immature Granulocyte % (Auto) 0, Neutrophils (%) (Auto) 65, Lymphocytes (%) (Auto) 23, Monocytes (%) (Auto) 11, Eosinophils (%) (Auto) 0, Basophils (%) (Auto) 0, Neutrophils # (Auto) 5.1, Lymphocytes # (Auto) 1.7, Monocytes # (Auto) 0.9, Eosinophils # (Auto) 0.0, Basophils # (Auto) 0.0, Immature Granulocyte # (Auto) 0.0, Sodium Level 140, Potassium Level 3.6, Chloride Level 107, Carbon Dioxide Level 22, Anion Gap 11, Blood Urea Nitrogen 20H, Creatinine 1.74H, Estimat Glomerular Filtration Rate 38, BUN/Creatinine Ratio 11, Glucose Level 97, Calcium Level 8.7, Corrected Calcium 8.9, Total Bilirubin 0.7, Aspartate Amino Transf (AST/SGOT) 28, Alanine Aminotransferase (ALT/SGPT) 25, Alkaline Phosphatase 190H, Total Protein 6.6, Albumin 3.7, Triglycerides Level 115, Cholesterol Level 107, LDL Cholesterol Direct 63, VLDL Cholesterol 23, HDL Cholesterol 28L Home Meds Active Amiodarone HCl 200 Mg Tablet 400 Mg PO BID 30 Days Take 400mg BID x 2 weeks, then 200mg BID x 2 weeks, then 200mg daily. Eliquis (Apixaban) 5 Mg Tablet 5 Mg PO BID Reported Fish Oil 1,000 mg Softgel ([place]-3/Dha/Epa/Fish Oil) 1 Each Capsule 1 Each PO DAILY Aspirin EC (Aspirin) 81 Mg Tablet.dr 81 Mg PO DAILY Allopurinol 300 Mg Tablet 300 Mg PO DAILY Finasteride 5 Mg Tablet 5 Mg PO 2000 Atorvastatin Calcium 40 Mg Tablet 40 Mg PO DAILY Pantoprazole Sodium 40 Mg Tablet.dr 40 Mg PO DAILY Amlodipine Besylate 10 Mg Tablet 10 Mg PO DAILY Metoprolol Succinate 50 Mg Tab.er.24h 50 Mg PO DAILY Assessment/Pt Instructions PCP in 1 week Discharge Planning: <30 minutes discharge planning Discharge Instructions Discharge Diet: No Restrictions Activity as Tolerated: Yes Discharge Physical Examination Vital Signs Vital Signs Date Time Temp Pulse Resp B/P (MAP) Pulse Ox O2 Delivery O2 Flow Rate FiO2 10/18/21 15:49 37.6 74 12 117/76 (90) 94 Room Air General Appearance: No Apparent Distress, WD/WN, Chronically ill Allergies: Coded Allergies: No Known Drug Allergies (Unverified , 08/04/20) Discharge Summary Date of Admission Oct 17, 2021 at 18:35 Date of Discharge Discharge Date: Oct 18, 2021 Admission Diagnosis Chest pain Discharge Diagnosis Cardiology consult Clinical Quality Measures AMI/AHF: ASA po Prior to arrival: Yes ELIEZER VALERIO DO Oct 18, 2021 17:24
[2021-10-18] MEDS ORDERED: AMIODARONE 200 MG (CORDARONE) TAB PO SCH (21:00)
[2021-10-18] MEDS ORDERED: APIXABAN 5 MG (ELIQUIS) TABLET PO SCH (21:00)
== END 2021-10-18 17:30 | disposition home or self-care (01) ==
LOC: EDUNIT# 15:10 → ER FS 15:11 → CSD 18:35
PROVIDERS: ADMIT Internal Medicine; ATTEND Internal Medicine
DX: R07.9 Chest pain, unspecified (principal); I48.91 Unspecified atrial fibrillation; I25.10 Atherosclerotic heart disease of native coronary artery without angina pectoris; E78.00 Pure hypercholesterolemia, unspecified; I10 Essential (primary) hypertension; K21.9 Gastro-esophageal reflux disease without esophagitis; E78.5 Hyperlipidemia, unspecified; Z87.891 Personal history of nicotine dependence
CPT/HCPCS: 36415; 71045; 80053 ×2; 80061; 83735; 83874; 83880 ×2; 84484 ×2; 85025 ×2; 85379; 85610; 85730; 93005; 93041; 93306; 93312; 93320; 93325; 96372; 99284; G0378

== ENCOUNTER → 2021-10-25 | Outpatient (CLI) | payer MEDICARE ==
[~2021-10-25] VITALS: Ht 177 cm; Wt 91.0 kg
[~2021-10-25] MED LIST: ALLO300T2 PO; AMIO200T65 PO; AMLO-251 PO; APIX5TAB PO; ASPI-1238 PO; ATOR40TA70 PO; CATHETER FLUSH 10 ML SYR IV PRN; CLOP75TA28 PO; FINA5TAB6 PO; METO50TA7 PO; OMEG-160 PO; PANT40TA52 PO; REGADENOSON 0.4 MG/5 ML SYR (LEXISCAN) IV ONE
[2021-10-25 13:41] VITALS: BP 150/79
--- NOTE | 2021-10-25 15:27 | Cardiology Stress Test Report ---
Stress Test Report Date of Procedure/Referring: Date of Procedure: Oct 25, 2021 Nancy Rose Admitting Physician Ziyad Rosado MD Indications: Chest pain Baseline Heart Rate: 52 Baseline Blood Pressure: Blood Pressure Systolic: 150 Blood Pressure Diastolic: 79 Baseline Vitals Vital Signs Date Time Temp Pulse Resp B/P (MAP) Pulse Ox O2 Delivery O2 Flow Rate FiO2 10/25/21 13:41 52 150/79 (102) Baseline EKG: Baseline EKG: NSR Summary After explaining the procedure to the patient, he signed a consent and then brought to the stress nuclear laboratory. Patient received 0.4 mg Lexiscan for stress test, ECG, heart rate and blood pressure were monitored continuously. Resting and stress dose of radio tracer were injected, imaging was acquired and reviewed in short axis, horizontal long axis and vertical long axis views. TID: 0.94 SSS: 1 SDS: 1 EF: 57 1. Patient tolerated Lexiscan well 2. No ischemia or infarction on SPECT images 3. Normal left ventricular size, EF 57% CONSTANCE OWUSU MD Oct 25, 2021 15:27
== END ==
LOC: CARD 12:45
PROVIDERS: ATTEND Physician Assistant
DX: R07.9 Chest pain, unspecified (principal)
CPT/HCPCS: 78452; 93017; A9502

== ENCOUNTER 2022-07-25 08:28 | Day surgery (SDC) | payer MEDICARE ==
[~2022-07-25] VITALS: Ht 177.8 cm; Wt 99.3 kg
[~2022-07-25 08:28] MED LIST changes: -CATHETER FLUSH 10 ML SYR IV PRN; -REGADENOSON 0.4 MG/5 ML SYR (LEXISCAN) IV ONE
[2022-07-25] MEDS ORDERED: LIDOCAINE 1% INJ 20 ML VIAL ONE (08:39)
[2022-07-25 08:44] VITALS: BP 136/88
[2022-07-25] MEDS: LIDOCAINE 1% INJ 20 ML VIAL INJ ONE (09:00)
--- NOTE | 2022-07-25 09:18 | Implantation of Loop Monitor ---
Implant of Loop Monitior IMPLANTATION OF LOOP MONITOR REPORT DATE OF PROCEDURE: 07/25/22 PREOP DIAGNOSIS: Paroxysmal atrial fibrillation POSTOP DIAGNOSIS: Paroxysmal atrial fibrillation PROCEDURE DETAILS: The patient is a 77 male with history of paroxysmal atrial fibrillation requiring long-term surveillance. Therefore implantable loop recorder was discussed and agreed with the patient. Informed consent was taken. All risks and complications were discussed at length. The patient was draped and prepped in the usual sterile fashion. Local anesthesia was lidocaine, which was given in the substernal area close to the 4th intercostal space. Loop monitor [employer] with serial number [id number] was implanted according to the protocol. Steri- Strips were placed at the end of the procedure. There were no complications and the patient tolerated the procedure well. ANESTHESIA: Local anesthesia with lidocaine. COMPLICATIONS: None CONTRAST/FLUOROSCOPY: None CONCLUSION: Successful implantation of loop monitor with no complication FINAL DIAGNOSIS: Paroxysmal atrial fibrillation Palpitation Hypertension Hyperlipidemia CONSTANCE OWUSU MD Jul 25, 2022 09:18
== END 2022-07-25 11:49 | disposition home or self-care (01) ==
LOC: CATH 08:28
PROVIDERS: ATTEND Internal Medicine Cardiovascular Disease
DX: I48.0 Paroxysmal atrial fibrillation (principal); Z79.01 Long term (current) use of anticoagulants; I25.10 Atherosclerotic heart disease of native coronary artery without angina pectoris; I10 Essential (primary) hypertension; E78.5 Hyperlipidemia, unspecified; F17.220 Nicotine dependence, chewing tobacco, uncomplicated; Z79.899 Other long term (current) drug therapy; Z79.82 Long term (current) use of aspirin
CPT/HCPCS: 33285

== ENCOUNTER 2023-01-23 05:05 | Emergency (ER) | payer MEDICARE ==
[~2023-01-23] VITALS: Ht 177.8 cm; Wt 96.2 kg
[2023-01-23] MEDS ORDERED: NS IV 500 ML 500 ML IV STA (05:25)
--- NOTE | 2023-01-23 05:33 | ED Cardiac General ---
History of Present Illness General Stated Complaint: IRR HEART RATE Source: patient, spouse Exam Limitations: no limitations History of Present Illness Date Seen by Provider: Jan 23, 2023 Time Seen by Provider: 05:10 Initial Comments 77 yo male presenting with complaint of feeling like his heart was racing. He has a history of paroxysmal atrial fibrillation and has an implanted loop recorder by Dr. Shukla Jul 2022. He felt about an hour prior to arrival he felt his heart was going fast. He usually takes his medicine in the morning around 7 or 8 am. He did not have chest pains with his symptoms. He feels like he is a little light headed with his heart racing. He denies missing doses of medicines. He reports he is due to see Dr. Shukla at the end of this month as a follow up from placing the loop recorder. He denies nausea, vomiting, chest pain, abd ominal pain. Timing/Duration: 1-3 hours Severity: mild Activities at Onset: rest Prior CP/Workup: angina, cardiac cath, echocardiography, stress test, other (Loop recorder, Stent placement x 2 ) Modifying Factors: worse with movement (heart goes up in rate with activity) NTG SL TRUST AND ESTATES PARALEGAL: No ASA po TRUST AND ESTATES PARALEGAL: No Associated Systoms: No Chest Pain; Cough (intermittent dry cough); No Diaphoresis, No Fever/Chills, No Headaches, No Loss of Appetite, No Malaise, No Nausea/Vomiting, No Rash, No Seizure; Shortness of Air (mild); No Syncope, No Weakness Allergies and Home Medications Allergies Coded Allergies: No Known Drug Allergies (Unverified , 08/04/20) Patient Home Medication List Home Medication List Reviewed: Yes Allopurinol (Allopurinol) 300 Mg Tablet, 300 MG PO DAILY, (Reported) Entered as Reported by: TITUS GOLDBERG on 10/18/211425 Last Action: Last Taken Edited Amiodarone HCl (Amiodarone HCl) 200 Mg Tablet, 400 MG PO BID Prescribed by: RICHARD PEÑALOZA on 10/18/21 1610 Last Action: Last Taken Edited Amlodipine Besylate (Amlodipine Besylate) 10 Mg Tablet, 10 MG PO DAILY, (Reported) Entered as Reported by: TITUS GOLDBERG on 10/18/211425 Last Action: Last Taken Edited Apixaban (Eliquis) 5 Mg Tablet, 5 MG PO BID Prescribed by: ELIEZER VALERIO on 10/18/21 551 Last Action: Last Taken Edited Aspirin (Aspirin EC) 81 Mg Tablet., 81 MG PO DAILY, (Reported) Entered as Reported by: TITUS GOLDBERG on 10/18/211425 Last Action: Last Taken Edited Atorvastatin Calcium (Atorvastatin Calcium) 40 Mg Tablet, 40 MG PO DAILY, (Reported) Entered as Reported by: TITUS GOLDBERG on 10/18/211425 Last Action: Last Taken Edited Finasteride (Finasteride) 5 Mg Tablet, 5 MG PO 1999, (Reported) Entered as Reported by: TITUS GOLDBERG on 10/18/211425 Last Action: Last Taken Edited Metoprolol Succinate (Metoprolol Succinate) 50 Mg Tab.er.24h, 50 MG PO DAILY, (Reported) Entered as Reported by: TITUS GOLDBERG on 10/18/211425 Last Action: Last Taken Edited [place]-3/Dha/Epa/Fish Oil (Fish Oil 1,000 mg Softgel) 1 Each Capsule, 1 EACH PO DAILY, (Reported) Entered as Reported by: TITUS GOLDBERG on 10/18/211425 Last Action: Last Taken Edited Pantoprazole Sodium (Pantoprazole Sodium) 40 Mg Tablet., 40 MG PO DAILY, (Reported) Entered as Reported by: TITUS GOLDBERG on 10/18/211425 Last Action: Last Taken Edited Review of Systems Review of Systems Constitutional: No chills, No fever EENTM: No Symptoms Reported Respiratory: See HPI Cardiovascular: See HPI Gastrointestinal: See HPI Genitourinary: No Symptoms Reported Musculoskeletal: no symptoms reported Skin: no symptoms reported Psychiatric/Neurological: No Symptoms Reported Endocrine: No Symptoms Reported Past Flwjkdu-Ibncxc-Sywiaf Hx Patient Social History Tobacco Use?: No Smokeless Tobacco Frequency: Former User Use of E-Cig and/or Vaping dev: No Substance use?: No Immunizations Up To Date First/Initial COVID19 Vaccinat: Red-rabbit 2020 Second COVID19 Vaccination Jovan: Red-rabbit 2020 Seasonal Allergies Seasonal Allergies: No Past Medical History Surgeries: Yes (Colon resections, cardiac stents) Bowel Surgery, Coronary Stent Respiratory: No Cardiac: Yes Coronary Artery Disease, High Cholesterol, Hypertension Neurological: No Genitourinary: No Gastrointestinal: Yes Gastroesophageal Reflux Musculoskeletal: Yes Gout Endocrine: No HEENT: No Cancer: No Psychosocial: No Blood Disorders: No Family Medical History No Pertinent Family Hx Physical Exam Vital Signs Vital Signs - First Documented 01/23/23 05:14 Temp 35.7 Pulse 96 Resp 15 B/P (MAP) 115/67 (83) Pulse Ox 98 O2 Delivery Room Air Capillary Refill : Height, Weight, BMI Height: '" Weight: lbs. oz. kg; 31.41 BMI Method: General Appearance: No Apparent Distress, WD/WN Neck: Normal Inspection, Supple Respiratory: Chest Non Tender, Lungs Clear, Normal Breath Sounds, No Accessory Muscle Use, No Respiratory Distress Cardiovascular: No Murmur, Normal Peripheral Pulses, Irregularly Irregular Gastrointestinal: Normal Bowel Sounds, No Pulsatile Mass, Non Tender, Soft Rectal: Deferred Extremity: Normal Capillary Refill, Normal Inspection, No Pedal Edema Neurologic/Psychiatric: Alert, Oriented x3, spice fumigator II-XII Norm as Tested Skin: Normal Color, Warm/Dry Progress/Results/Core Measures Results/Orders Lab Results Laboratory Tests Test 01/23/23 05:24 Range/Units White Blood Count 6.2 4.3-11.0 10^3/uL Red Blood Count 4.74 4.30-5.52 10^6/uL Hemoglobin 12.0 L 13.3-17.7 g/dL Hematocrit 37 L 40-54 % Mean Corpuscular Volume 78 L 80-99 fL Mean Corpuscular Hemoglobin 25 25-34 pg Mean Corpuscular Hemoglobin Concent 32 32-36 g/dL Red Cell Distribution Width 15.2 H 10.0-14.5 % Platelet Count 196 130-400 10^3/uL Mean Platelet Volume 8.5 L 9.0-12.2 fL Immature Granulocyte % (Auto) 0 % Neutrophils (%) (Auto) 53 42-75 % Lymphocytes (%) (Auto) 32 12-44 % Monocytes (%) (Auto) 14 H 0-12 % Eosinophils (%) (Auto) 1 0-10 % Basophils (%) (Auto) 0 0-10 % Neutrophils # (Auto) 3.3 1.8-7.8 10^3/uL Lymphocytes # (Auto) 2.0 1.0-4.0 10^3/uL Monocytes # (Auto) 0.9 0.0-1.0 10^3/uL Eosinophils # (Auto) 0.0 0.0-0.3 10^3/uL Basophils # (Auto) 0.0 0.0-0.1 10^3/uL Immature Granulocyte # (Auto) 0.0 0.0-0.1 10^3/uL Prothrombin Time 15.9 H 12.2-14.7 SEC INR Comment 1.2 0.8-1.4 Activated Partial Thromboplast Time 42 H 24-35 SEC Sodium Level 135 135-145 MMOL/L Potassium Level 3.4 L 3.6-5.0 MMOL/L Chloride Level 102 98-107 MMOL/L Carbon Dioxide Level 20 L 21-32 MMOL/L Anion Gap 13 5-14 MMOL/L Blood Urea Nitrogen 29 H 7-18 MG/DL Creatinine 2.07 H 0.60-1.30 MG/DL Estimat Glomerular Filtration Rate 33 BUN/Creatinine Ratio 14 Glucose Level 101 70-105 MG/DL Calcium Level 8.7 8.5-10.1 MG/DL Corrected Calcium 8.9 8.5-10.1 MG/DL Magnesium Level 2.3 1.6-2.4 MG/DL Total Bilirubin 0.4 0.1-1.0 MG/DL Aspartate Amino Transf (AST/SGOT) 23 5-34 U/L Alanine Aminotransferase (ALT/SGPT) 10 0-55 U/L Alkaline Phosphatase 164 H 40-136 U/L Troponin I < 0.30 <0.30 NG/ML Pro-B-Type Natriuretic Peptide 411.6 <450.0 PG/ML Total Protein 7.3 6.4-8.2 GM/DL Albumin 3.8 3.2-4.5 GM/DL My Orders Orders - EASTON JUNIOR MD Ekg Tracing (01/23/23 05:13) Cbc With Automated Diff (01/23/23 05:25) Magnesium (01/23/23 05:25) Comprehensive Metabolic Panel (01/23/23 05:25) Protime With Inr (01/23/23 05:25) Partial Thromboplastin Time (01/23/23 05:25) O2 (01/23/23 05:25) Monitor-Rhythm Ecg Trace Only (01/23/23 05:25) Ed Iv/Invasive Line Start (01/23/23 05:25) Troponin I Fs (01/23/23 05:25) Probnp Fs (01/23/23 05:25) Diltiazem Injection (Cardizem Injection) (01/23/23 05:25) Ns Iv 500 Ml (Sodium Chloride 0.9%) (01/23/23 05:25) Ekg Tracing (01/23/23 06:12) Vital Signs/I&O 01/23/23 01/23/23 01/23/23 05:14 05:14 05:33 Temp 35.7 Pulse 96 93 Resp 15 B/P (MAP) 115/67 (83) 115/67 Pulse Ox 98 98 O2 Delivery Room Air Room Air Progress Progress Note #1: Progress Note Potential diagnosis of paroxysmal atrial fibrillation, myocardial infarction, electrolyte imbalance, dehydration. 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 Obtain electrocardiogram to look at rate and rhythm and look for ischemia. Establish IV access and send labs for complete blood count, comprehensive metabolic profile, magnesium, coagulation factors. Consider Chest xray if he has worsening symptoms or is getting short of breath. On arrival his oxygen saturation is 94-98% on room air. Lung exam wsa clear to auscultation without wheezes, rales or rhonchi. As he is not complaining of chest pain and is not having rapid ventricular response he will likely be able to go home and take his regular medicine. Will administer NS 500 mL bolus IV fluids to try and help with heart rate. Diltiazem 5 mg IV x 1 to try and help lower his heart rate further and possibly convert to sinus rhythm. If he has worsening of heart rate ro shows severe electrolyte abnormality he might have to be admitted for treatment but hopefully his electrolytes will be ok and as long as he does not have RVR will try discharge to home and have him take his morning medicines to help slow his paroxysmal atrial fibrillation. If he is able to be discharged to home will have them call Dr. Shukla's office in am to see about possibly moving up his follow up appointment from end of the month. Progress Note #2: Time: 05:59 Progress Note Complete blood count showed a normal white blood cell count of 6.2. This helps rule out severe infection. His Hemoglobin is at lower limit of normal at 12 so he is not anemic. Coagulation factors are consistent with him taking a NOAC as he has Protime slightly elevated to 15.9 with INR 1.2 and slight elevation of PTT to 42. He has heart rate 70s to 80s with atrial fibrillation after the diltiazem 5 mg IV dose and with NS 500 mL bolus infusing. Blood pressure stable at 110/66. Awaiting comprehensive metabolic profile and cardiac enzymes. Progress Note #3: Time: 06:34 Progress Note Repeat electrocardiogram at 6:19 AM showed atrial fibrillation with improved rate control with heart rate 78. He did not have any ST elevation. QT interval 367 ms with a QTc interval 400 ms. He again appears similar to tracing from 10/17/2021 and improved heart rate from tracing at 0517 this am. His electrolytes do not show acute significant abnormality or imbalance to cause him to have irregular heart rate. He has chronic renal insufficiency and Cr of 2 this am with previous Cr of 1.74. Troponin is <0.3 so not showing ACS or ischemic change. Normal proBNP to go against him having heart failure. I feel that it is safe to discharge him to home and have him take his regular medications including Multaq to help with his heart rate. We will have him take his medicines when he gets home. Call and check with Dr. Shukla to see if they want him seen sooner than the end of the month. Continue to take regular medicines and stay well-hydrated to help with kidney function. Initial ECG Impression Date: Jan 23, 2023 Initial ECG Impression Time: 05:17 Initial ECG Rate: 1003 Initial ECG Rhythm: A Fib/Flutter Initial ECG Comparisson: Unchanged (Overall appears similar to tracing from 10/17/2021 where he had atrial fibrillation and rate in the 80s) Comment My personal interpretation and review of his ECG shows atrial fibrillation with heart rate 103. No acute ST elevation. QT interval 340 ms with QTc interval 399 ms. Similar to tracing from 10/17/2021 where he had atrial fibrillation with heart rate in 80s. EKG : EKG Time: 06:19 Rate: 78 Rhythm: A Fib/Flutter ECG Comparisson: Unchanged Comment Repeat electrocardiogram at 6:19 AM showed atrial fibrillation with improved rate control with heart rate 78. He did not have any ST elevation. QT interval 367 ms with a QTc interval 400 ms. He again appears similar to tracing from 10/17/2021 and improved heart rate from tracing at 0517 this am. Departure Impression Primary Impression: Paroxysmal atrial fibrillation Disposition: 01 HOME, SELF-CARE Condition: Stable Departure-Patient Inst. Decision time for Depature: 06:37 Referrals: CONSTANCE SHUKLA MD SELF,MARILOU TILLMAN (PCP/Family) Primary Care Physician Patient Instructions: Atrial Fibrillation and Atrial Flutter ED Add. Discharge Instructions: Take your regular medicines when you get home this morning. Call Dr. Shukla's office and let them know that you had to come to the Emergency Department this morning for atrial fibrillation and see if they want to move up your appointment from the end of January and have you seen sooner. Stay well hydrated and follow a heart healthy diet. EASTON JUNIOR MD Jan 23, 2023 05:33
[2023-01-23 05:40] LABS: BASOPHILS % (AUTO) 0 % (0-10); EOSINOPHILS % (AUTO) 1 % (0-10); HEMATOCRIT 37 % (40-54); LYMPHOCYTES % (AUTO) 32 % (12-44); MEAN CORPUSCULAR HEMOGLOBIN 25 pg (25-34); MEAN CORPUSCULAR HGB CONC 32 g/dL (32-36); MEAN CORPUSCULAR VOLUME 78 fL (80-99); MEAN PLATELET VOLUME 8.5 fL (9.0-12.2); MONOCYTES # (AUTO) 0.9 10^3/uL (0.0-1.0); MONOCYTES % (AUTO) 14 % (0-12); NEUTROPHILS # (AUTO) 3.3 10^3/uL (1.8-7.8); NEUTROPHILS % (AUTO) 53 % (42-75); PLATELET COUNT 196 10^3/uL (130-400); WHITE BLOOD COUNT 6.2 10^3/uL (4.3-11.0)
[2023-01-23 05:57] LABS: INR 1.2 (0.8-1.4); PROTHROMBIN TIME PATIENT 15.9 SEC (12.2-14.7)
[2023-01-23 06:28] LABS: ALBUMIN 3.8 GM/DL (3.2-4.5); BILIRUBIN,TOTAL 0.4 MG/DL (0.1-1.0); CALCIUM 8.7 MG/DL (8.5-10.1); CREATININE SERUM 2.07 MG/DL (0.60-1.30); MAGNESIUM 2.3 MG/DL (1.6-2.4); POTASSIUM 3.4 MMOL/L (3.6-5.0); TOTAL PROTEIN 7.3 GM/DL (6.4-8.2)
[2023-01-23 06:53] VITALS: BP 106/68
== END 2023-01-23 06:53 | disposition home or self-care (01) ==
LOC: EDUNIT# 05:05 → ER FS 05:07
DX: I48.0 Paroxysmal atrial fibrillation (principal); R79.1 Abnormal coagulation profile; Z87.891 Personal history of nicotine dependence
CPT/HCPCS: 36415; 80053; 83735; 83880; 84484; 85025; 85610; 85730; 93005; 93041

== ENCOUNTER → 2023-09-30 | Outpatient (CLI) | payer MEDICARE ==
[~2023-09-30] MED LIST changes: +CATHETER FLUSH 10 ML SYR IVP PRN; +REGADENOSON 0.4 MG/5 ML SYR IV ONE
[2023-09-30 09:37] VITALS: BP 151/74
--- NOTE | 2023-09-30 11:55 | Cardiology Stress Test Report ---
Stress Test Report Date of Procedure/Referring: Date of Procedure: Sep 30, 2023 PCP Ziyad Rosado MD Admitting Physician Admitting Physician: Attending Physician: Lilliam Shukla MD Baseline Heart Rate: 55 Baseline Blood Pressure: Blood Pressure Systolic: 151 Blood Pressure Diastolic: 74 Baseline Vitals Vital Signs Date Time Temp Pulse Resp B/P (MAP) Pulse Ox O2 Delivery O2 Flow Rate FiO2 09/30/23 09:37 60 151/74 (99) Baseline EKG: Baseline EKG: NSR Summary After explaining the procedure to the patient, he signed a consent and then brought to the stress nuclear laboratory. Patient received 0.4 mg Lexiscan for stress test, ECG, heart rate and blood pressure were monitored continuously. Resting and stress dose of radio tracer were injected, imaging was acquired and reviewed in short axis, horizontal long axis and vertical long axis views. TID: 1.13 SSS: 3 SDS: 2 EF: 53 Patient tolerated Lexiscan well Diaphragmatic attenuation with mild decrease uptake at the apex with no significant ischemia or infarction on SPECT images Normal left ventricular size, ejection fraction 53% Copy Copies To 1: ZIYAD ROSADO MD, BASHAR J MD Sep 30, 2023 11:55
== END ==
LOC: CARD 07:41
PROVIDERS: ATTEND Internal Medicine Cardiovascular Disease
DX: I10 Essential (primary) hypertension (principal); I25.10 Atherosclerotic heart disease of native coronary artery without angina pectoris
CPT/HCPCS: 78452; 93017; A9502